=== PATIENT | male | born 2000 | race Caucasian/White ===

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

== ENCOUNTER 2021-05-30 19:13 | Emergency (ER) | payer SELFPAY ==
--- NOTE | ~2021-05-30 | XR_ITS ---
XR ankle RT min 3V DATE: 05/30/2021 19:30 INDICATION: Injury, lateral pain TECHNIQUE: 4 views COMPARISON: 11/05/2019 right ankle FINDINGS: There is moderate lateral soft tissue swelling but no fracture or dislocation of the ankle or disruption of the ankle mortise. IMPRESSION: Lateral soft tissue swelling; no fracture or dislocation Reviewed, dictated and finalized at location A. [employer]
[2021-05-30 19:21] VITALS: BP 114/75; PULSE 108; RESP 16; TEMP 37.1; O2SAT 99
--- NOTE | 2021-05-30 19:56 | ED.LOWEXIN ---
HPI - Extremity Injury (Lower) General Chief Complaint: Extremity Injury, Lower Stated Complaint: Right ankle Pain Time Seen by Provider: 05/30/21 19:50 Source: patient and RN notes reviewed Mode of arrival: ambulatory Limitations: no limitations History of Present Illness HPI Narrative: Patient presents today complaining of a right ankle injury. He rolled it playing basketball 1 hour prior to arrival. He has not been weightbearing since the injury. Reports some tingling in toes 1 through 3, but denies numbness. Currently rates pain 7/10 and has tried no [id number] interventions prior to arrival. MD complaint: ankle injury Related Data Home Medications Medication Instructions Recorded Confirmed fludrocortisone 0.1 mg PO DAILY 11/05/19 11/05/19 hydrocortisone 20 mg PO DAILY 11/05/19 11/05/19 Allergies Allergy/AdvReac Type Severity Reaction Status Date / Time No Known Allergies Allergy Verified 05/30/21 19:59 Review of Systems Review of Systems: CONSTITUTIONAL: Denies body aches, fever, chills, or sweats. EYES: Denies visual changes, redness, or discharge. ENT: Denies rhinorrhea, congestion, sore throat, or otalgia. CARDIOVASCULAR: Denies chest pain, palpitations, or edema. RESPIRATORY: Denies cough or dyspnea. GASTROINTESTINAL: Denies abdominal pain, nausea, vomiting, or diarrhea. GENITOURINARY: Denies dysuria or hematuria. SKIN: Denies rash, itching, or wounds. MUSCULOSKELETAL: Denies back pain, or myalgia. + Right ankle injury NEUROLOGIC: Denies headache, numbness, or weakness.+ Tingling in toes PSYCH: Denies depression or anxiety. [facility] Past Medical History Medical History [place] disease Surgical History Surgical History History of testicular surgery Family History Family History Mother Diabetes mellitus Grandparent Heart disease Social History Social History Smoking status: Never smoker Tobacco type: cigarettes Second hand tobacco smoke exposure: Yes Alcohol intake: never Substance use: never Gender identity (if verbalized by the patient): Male Comments At time of signature, I have reviewed and agree with nursing past medical, surgical, social and family history unless otherwise noted. Please see nursing chart for further information. There is no relevant family history pertinent to the presenting complaint Exam Narrative: GENERAL: Well-appearing, well-nourished, and in no acute distress. HEAD: Normocephalic, atraumatic. EYES: EOMI. No redness or drainage. Conjunctivae normal. ENT: Mucous membranes pink and moist. NECK: Normal AROM. CHEST: No respiratory distress. EXTREMITIES: Right ankle: Mild to moderate swelling to the lateral malleolus with tenderness to same. No tenderness laterally or posteriorly. No tenderness to the foot. Distal sensation intact in all toes. Capillary refill normal. Pedal pulse normal. Full range of motion of the toes. Full range of motion of the ankle with increased pain. SKIN: Warm, dry, no rash. Capillary refill normal. Normal skin turgor. NEURO: No focal deficits. Alert and oriented x3. Gait steady. PSYCH: Normal affect. No signs of depression or anxiety. Course Vital Signs Vital signs: Vital Signs Temperature 98.8 F 05/30/21 19:21 Pulse Rate 108 H 05/30/21 19:21 Respiratory Rate 16 05/30/21 19:21 Blood Pressure 114/75 05/30/21 19:21 Pulse Oximetry 99 05/30/21 19:21 Temperature 98.8 F 05/30/21 19:21 Pulse Rate 108 H 05/30/21 19:21 Respiratory Rate 16 05/30/21 19:21 Blood Pressure 114/75 05/30/21 19:21 Pulse Oximetry 99 05/30/21 19:21 Reviewed MDM - Extremity Injury (Lower) Differential Diagnosis Differential diagnosis: Likely ankle sprain and s
== END 2021-05-30 20:10 | disposition home or self-care (01) ==
PROVIDERS: Emergency Provider Nurse Practitioner; PCP Pediatrics Adolescent Medicine
DX: S93.401A Sprain of unspecified ligament of right ankle, initial encounter (principal); X50.9XXA Other and unspecified overexertion or strenuous movements or postures, initial encounter; Y93.67 Activity, basketball; E27.1 Primary adrenocortical insufficiency
CPT/HCPCS: 73610; 99213; G0463

== ENCOUNTER 2023-03-31 15:30 | Emergency (ER) | payer OTHER, SELFPAY ==
[2023-03-31 15:47] VITALS: BP 113/99; PULSE 69; RESP 16; TEMP 36.6; O2SAT 100
--- NOTE | 2023-03-31 16:24 | ED.URI ---
HPI - URI/Sore Throat General Chief Complaint: Upper Respiratory Infection Stated Complaint: headache,stomach issues,sore throat Time Seen by Provider: 03/31/23 16:24 Source: patient Mode of arrival: ambulatory Limitations: no limitations History of Present Illness HPI Narrative: 22-year-old male presents with complaint cough, congestion, postnasal drainage for the past 3 days. Patient now feeling better, reports he continues to have a raspy voice. Needs a work note to return. Taking [id number] Mucinex. States feeling much better. All systems reviewed and negative except as noted above. Related Data Home Medications Medication Instructions Recorded Confirmed fludrocortisone 0.1 mg tablet 0.1 mg PO DAILY 11/05/19 05/30/21 hydrocortisone 20 mg tablet 20 mg PO DAILY 11/05/19 05/30/21 Allergies Allergy/AdvReac Type Severity Reaction Status Date / Time No Known Allergies Allergy Verified 03/31/23 15:35 Review of Systems Review of Systems: CONSTITUTIONAL: Denies fever, chills, or sweats. EYES: Denies visual changes, redness, or discharge. ENT: denies rhinorrhea, congestion, sore throat, or otalgia. reports raspy voice, postnasal drainage. CARDIOVASCULAR: Denies chest pain, palpitations, or edema. RESPIRATORY: Denies cough or dyspnea. GASTROINTESTINAL: Denies abdominal pain, nausea, vomiting, or diarrhea. GENITOURINARY: Denies dysuria or hematuria. SKIN: Denies rash or itching. MUSCULOSKELETAL: Denies back pain, joint pain, or myalgia. NEUROLOGIC: Denies headache, numbness, or weakness. PSYCHIATRIC: Denies anxiety or depression. All other systems reviewed are negative, except as documented in HPI. [facility] Past Medical History Medical History [place] disease Surgical History Surgical History History of testicular surgery Family History Family History Mother Diabetes mellitus Grandparent Heart disease Social History Social History Smoking status: Never smoker Tobacco type: cigarettes Second hand tobacco smoke exposure: Yes Alcohol intake: never Substance use: never Living arrangements: with family Occupation/Education: student Gender identity (if verbalized by the patient): Male Comments At time of signature, agree with nursing past medical, surgical, social and family history. There is no relevant family history pertinent to the presenting complaint. Exam Narrative: GENERAL: This is a well-nourished, well-developed patient, in no apparent distress. HEAD: normocephalic, atraumatic. EYES: PERRL. Sclera clear/white. Vision is grossly intact. EARS: External ears normal, auditory canals clear and without drainage, TMs normal without perforation. Hearing grossly intact. NOSE: External nose normal with Clear nasal drainage. THROAT: Mucous membranes moist, Clear postnasal drainage without erythema. NECK: Neck supple, non-tender without lymphadenopathy, masses or thyromegaly. CARDIOVASCULAR: Regular rate and rhythm without murmurs, gallops, or rubs. RESPIRATORY: Clear to auscultation. Breath sounds equal bilaterally. No wheezes, rales, or rhonchi. SKIN: warm, Dry, intact with no suspicious lesions or rash, good texture and turgor. NEURO: awake, alert, and oriented to person, place and time. There were no obvious focal neurologic abnormalities. EXTREMITIES: No joint tenderness, effusion, or edema noted. Course Course Level of Care: Express Care Visit Vital Signs Vital signs: Vital Signs Temperature 36.6 C 03/31/23 15:47 Pulse Rate 69 03/31/23 15:47 Respiratory Rate 16 03/31/23 15:47 Blood Pressure 113/99 H 03/31/23 15:47 Pulse Oximetry 100 03/31/23 15:47 Oxygen Delivery Room Air 03/31/23 15:47 Te
== END 2023-03-31 16:48 | disposition home or self-care (01) ==
PROVIDERS: Emergency Provider Nurse Practitioner Family
DX: J06.9 Acute upper respiratory infection, unspecified (principal); Z20.822 Contact with and (suspected) exposure to COVID-19; E27.1 Primary adrenocortical insufficiency
CPT/HCPCS: 87426; 87804; 99213; C9803; G0463